=== PATIENT | male | born 2000 | race Caucasian/White ===

== ENCOUNTER 2019-03-13 19:49 | Emergency (ER) | payer SELFPAY ==
[~2019-03-13] VITALS: Ht 165.1 cm; Wt 72.6 kg
[2019-03-13 19:56] VITALS: Ht 165.1 cm; Wt 72.6 kg
[2019-03-13 20:41] VITALS: BP 118/71
== END 2019-03-13 20:41 | disposition home or self-care (01) ==
LOC: ED 19:49
DX: L03.113 Cellulitis of right upper limb (principal)